=== PATIENT | male | born 1980 | race Hispanic/Latino ===

== ENCOUNTER 2016-10-04 19:17 | Emergency (ER) ==
--- NOTE | 2016-10-04 21:12 | PROVIDER DOCUMENTATION ---
HPI-Musculoskeletal Pain/Inj <Neva Donald - Last Filed: 10/04/16 21:29> - GENERAL Source: patient - HX OF PRESENT ILLNESS-MUSKULOSKELTAL Quality of Pain: reports: aching Severity in ED: mild Onset/Duration: this afternoon Timing: still present Modifying Factors: improves with: nothing Any recent injury?: Yes (lifting) Locality of Occurance: Work Similar Symptoms Previously?: Yes Recently seen or treated by another doctor?: No - UPPER EXTREMITY PAIN/INJURY Extremities Pain Location: shoulder: left Context / Method of Injury: reports: other (lifting) Associated Symptoms: reports: denies symptoms <Stormy Ceballos - Last Filed: 10/04/16 21:59> - GENERAL Chief Complaint: Shoulder Injury Stated Complaint: SHOULDER INJURY Time Seen by Provider: 10/04/16 21:07 - HX OF PRESENT ILLNESS-MUSKULOSKELTAL Nature of Presenting Problem: 36 year old M presents to the ED with a cc of right shoulder injury. PT states that he was lifting and since he can not raise his shoulder. PT states that he feels as if it is dislocated. PT states that he is out of his pain medications and has not been able to find a doctor to fill them here. PT just moved from [place] x1 month ago. (Stormy Ceballos) Review of Systems - Adult - REVIEW OF SYSTEMS - ADULT Constitutional: denies: chills, fever Eyes: reports: no symptoms reported Ears, Nose, Mouth & Throat: reports: no symptoms reported Cardiovascular: reports: no symptoms reported Respiratory: denies: cough, shortness of breath Gastrointestinal: denies: abdominal pain, nausea, vomiting Genitourinary: reports: no symptoms reported Musculoskeletal: reports: joint pain, muscle aches. denies: muscle weakness Integumentary: denies: skin sores/ulcer, skin thickening Neurological: reports: no symptoms reported Psychiatric: reports: no symptoms reported Endocrine: reports: no symptoms reported Hematologic/Lymphatic: reports: no symptoms reported Allergic/Immunologic: reports: no symptoms reported All Other Systems: Reviewed and Negative <Stormy Ceballos - Last Filed: 10/04/16 21:59> Past History - Adult - PAST MEDICAL HISTORY-ADULT Review of Records: reports: Nursing Assessment Review, Medications Reviewed Major Childhood Illnesses: reports: denies history Musculoskeletal: reports: chronic pain, orthopedic injury - PRIOR SURGERIES/PROCEDURES Surgical/Procedure History: reports: orthopedic (extremity) - IMMUNIZATION STATUS Childhood Immunizations: See Nurse Assessment Flu Vaccine: See Nurse Assessment <Stormy Ceballos - Last Filed: 10/04/16 21:59> Physical Exam-Injury Related - Physical Exam-Injury Related Initial Vital Signs Reviewed: Yes General Appearance: appears well, alert, no apparent distress Neck: non-tender, full range of motion, supple, normal inspection Respiratory: chest non-tender, lungs clear, normal breath sounds Cardiovascular: normal peripheral pulses, regular rate, rhythm, no edema Extremity: tenderness (left anterior shoulder) Integumentary: normal color, warm/dry Psych/Mental Status: AL, normal mood/affect, normal thought content, normal thought process, oriented x 3 <Stormy Ceballos - Last Filed: 10/04/16 21:59> Progress - XRAY 1 XRAY: Left XRAY Study: Shoulder Impression: Normal XRAY Interpretation: no fx or dislocation per [facility] <Neva Donald - Last Filed: 10/04/16 21:29> <Stormy Ceballos - Last Filed: 10/04/16 21:59> - PLAN OF CARE/RESULTS Progress/Plan/Lab Results: Pt admits he is out of chronic pain medication, his will be in town from [place] in 5 days with his refill. (Neva Donald) plan of care: imaging, medications Orders Category Date Time Status SHOULDER-LEFT [RAD] Stat Exams 10/04/16 19:54 Taken Ibuprofen [Motrin] Med 10/04/16 21:39 Discontinued 800 mg .ROUTE .STK-MED ONE Ibuprofen [Motrin] Med 10/04/16 21:43 Discontinued 800 mg PO NOW ONE Vital Signs - 24 hr 10/04/16 10/04/16 19:49 21:44 Temperature 98.5 F 98.2 F Pulse Rate 73 89 Respiratory 18 18 Rate Blood Pressure 134/90 139/90 O2 Sat by Pulse 100 99 Oximetry Pt given results and will be d/c home w/ rx to follow up with PCP. Pt verbally understood instructions. PT remained clinically stable throughout the course of the ED stay and will return if symptoms worsen. (Stormy Ceballos) Departure - Departure Time of Disposition Order: 21:30 Certified Medical Emergency: Emergent <Neva Donald - Last Filed: 10/04/16 21:29> <Stormy Ceballos - Last Filed: 10/04/16 21:59> - Departure DIAGNOSIS: Shoulder pain, acute Qualifiers: Laterality: left Qualified Code(s): M25.512 - Pain in left shoulder Disposition: HOME 01 Condition: Good Additional Instructions: Use left shoulder carefully to prevent further pain. ED Follow Up Instructions: You have been treated by a care provider in the Emergency Department. These instructions are being provided to you so you can have an understanding of how to care for yourself upon discharge. Upon discharge from the Emergency Department, you are responsible for making arrangements for follow-up care by a physician of your choice. Take all prescribed medications as directed. Return to the Emergency Department immediately for any new or worsening symptoms. You may call the Physician Referral phone number at [phone] to obtain a list of Physicians who are taking new patients. Prescriptions: Ibuprofen 800 mg PO BID #20 tablet Methocarbamol 500 mg PO BID #20 tablet Referrals: None,PCP [Primary Care Provider] - Sebastien Serrano MD [STAFF PHYSICIAN] - Forms: Return to School/Parent Work Instructions: Shoulder Pain, Ibuprofen tablets and capsules, Methocarbamol tablets Attestation - Physician/ Mid-level Attestation Patient care was provided by Mid-level provider (BAGGAGE SMASHER/PA):: Yes Mid-level provider:: Neva Donald Mid-level documentation review:: The Mid-level provider documentation, treatment plan and medical decision making was reviewed by the physician who agrees with all treatment and medical decision making by the [facility]. <Neva Donald - Last Filed: 10/04/16 21:29> - Scribe Verification/Attestation Scribe:: Stormy Ceballos Acting as Scribe for:: Neva Donald Scribe documention review:: This chart was documented by a scribe and accurately reflects the service the provider performed and the decisions made by the provider. <Stormy Ceballos - Last Filed: 10/04/16 21:59> Physician Attestation - Physician Attestation I, the provider, attest to the following statement:: Neva Donald Physician documentation Attestation:: This documentation recorded by the scribe accurately reflects the service I personally performed and the decisions made by me. <Stormy Ceballos - Last Filed: 10/04/16 21:59>
[2016-10-04] MEDS ORDERED: MOTRIN ONE (21:39)
[2016-10-04] MEDS ORDERED: MOTRIN PO ONE (21:43)
[2016-10-04 21:45] VITALS: BP 139/90
== END 2016-10-04 21:44 | disposition home or self-care (01) ==
LOC: P.ED 19:17
DX: M25.512 Pain in left shoulder (principal); M79.1 Myalgia; G89.29 Other chronic pain; X58.XXXA Exposure to other specified factors, initial encounter
CPT/HCPCS: 99282

== ENCOUNTER 2016-10-04 22:25 | Emergency (ER) ==
[2016-10-04 22:37] VITALS: BP 152/97
--- NOTE | 2016-10-04 22:53 | PROVIDER DOCUMENTATION ---
HPI-Musculoskeletal Pain/Inj - GENERAL Chief Complaint: Shoulder Injury Stated Complaint: LT SHOULDER INJURY @1630 Time Seen by Provider: 10/04/16 22:43 Source: patient (Patient is a 36 year old male with history of recent left shoulder dislocation who presents with tender left shoulder while carrying helene shingles at 430pm today.) - HX OF PRESENT ILLNESS-MUSKULOSKELTAL Quality of Pain: reports: aching Onset/Duration: abrupt Any recent injury?: Yes Locality of Occurance: Home Similar Symptoms Previously?: Yes Recently seen or treated by another doctor?: Yes (2 weeks ago) - FALL INJURY Location of Pain/Injury: reports: upper extremity Pain Radiation: reports: no radiation Loss of Consciousness: no loss of consciousness - UPPER EXTREMITY PAIN/INJURY Extremities Pain Location: shoulder: left (tenderness and decreased range of motion) Associated Symptoms: denies: numbness in upper ext Review of Systems - Adult - REVIEW OF SYSTEMS - ADULT Constitutional: reports: no symptoms reported Eyes: reports: no symptoms reported Ears, Nose, Mouth & Throat: reports: no symptoms reported Cardiovascular: reports: no symptoms reported Respiratory: reports: no symptoms reported Gastrointestinal: reports: no symptoms reported Genitourinary: reports: no symptoms reported Musculoskeletal: reports: see HPI Integumentary: reports: no symptoms reported Neurological: reports: no symptoms reported Psychiatric: reports: no symptoms reported Endocrine: reports: no symptoms reported Hematologic/Lymphatic: reports: no symptoms reported Allergic/Immunologic: reports: no symptoms reported All Other Systems: Reviewed and Negative Past History - Adult - PAST MEDICAL HISTORY-ADULT Review of Records: reports: Old Records Reviewed, Nursing Assessment Review, Medications Reviewed, Social history reviewed & non-contributory. Major Childhood Illnesses: reports: denies history Musculoskeletal: reports: chronic pain, orthopedic injury, other (left shoulder dislocation recently) Other Conditions: reports: denies history - PRIOR SURGERIES/PROCEDURES Surgical/Procedure History: reports: orthopedic (extremity) - IMMUNIZATION STATUS Childhood Immunizations: See Nurse Assessment Flu Vaccine: See Nurse Assessment Physical Exam-Injury Related - Physical Exam-Injury Related General Appearance: alert, other (in pain) Eyes: PERRL/EOMI Head, Ears, Nose, Mouth & Throat: normocephalic/atraumatic, moist mucous membranes Neck: non-tender, supple Respiratory: lungs clear Cardiovascular: regular rate, rhythm Abdominal Exam: non tender, soft. negative: guarding, rebound Back Exam: normal inspection Extremity: other (tenderness and decreased rang of motion of left shoulder) Neurologic: grossly normal Psych/Mental Status: anxious - Glascow Coma Score Best Eye Response ([place]): (4) open spontaneously Best Verbal Response ([place]): (5) oriented Best Motor Response ([place]): (6) obeys commands Departure - Departure Time of Disposition Order: 23:55 DIAGNOSIS: Left shoulder strain Qualifiers: Encounter type: initial encounter Qualified Code(s): S46.912A - Strain of unspecified muscle, fascia and tendon at shoulder and upper arm level, left arm , initial encounter Disposition: HOME 01 Certified Medical Emergency: Emergent Condition: Stable Additional Instructions: followup with [facility] as soon as possible Prescriptions: Hydrocodone/Acetaminophen [[place] 5-325 Tablet] 1 each PO Q6H PRN #10 tablet PRN Reason: Pain Referrals: None,PCP [Primary Care Provider] - Forms: Return to School/Parent Work Instructions: Shoulder Pain, [id number]
[2016-10-04] MEDS ORDERED: NORCO-5 PO ONE (23:26)
--- NOTE | 2016-10-05 08:05 | Diag Imaging Result Document ---
PROCEDURE NAME: SHOULDER-LEFT - 10/04/2016 LEFT SHOULDER, FOUR VIEWS: FINDINGS: There has been previous internal fixation of the coracoid process. There are also apparent postsurgical changes in the humeral head from which some hardware has apparently been removed. There is no evidence of acute fracture or dislocation. Compared to 10/04/2016 at 2010 hours, there has been no significant change. IMPRESSION: No acute disease.
== END 2016-10-05 00:07 | disposition home or self-care (01) ==
LOC: ED 22:25
DX: S46.912A Strain of unspecified muscle, fascia and tendon at shoulder and upper arm level, left arm, initial encounter (principal); M25.512 Pain in left shoulder; G89.29 Other chronic pain; X58.XXXA Exposure to other specified factors, initial encounter
CPT/HCPCS: 99283